=== PATIENT | female | born 1985 | race Caucasian/White ===

== ENCOUNTER 2022-09-18 09:02 | Emergency (ER) | payer OTHER, BC, SELFPAY ==
--- NOTE | 2022-09-18 09:05 | ED.URI ---
HPI - URI/Sore Throat General Chief Complaint: Upper Respiratory Infection Stated Complaint: Asthma/Cold Symptoms Time Seen by Provider: 09/18/22 09:05 Source: patient and RN notes reviewed History of Present Illness HPI Narrative: Patient is a 37-year-old female who presents to urgent care with complaints of wheezing, runny nose and cold-like symptoms. Patient is 32 weeks and says that she has had some increased shortness of breath with using the stairs. Reports of a sore throat with cough. Denies any fevers, chest pain, nausea or vomiting. Patient states she has called both her PCP and her corporate travel coordinator enabled referred her back to the other provider. Patient has been using her albuterol inhaler. No other acute complaints. No acute distress noted. Patient aware the plan of care. Some parts of this dictation were generated by voice recognition software and may contain typographical and/or grammatical inaccuracies. Related Data Home Medications Medication Instructions Recorded Confirmed albuterol sulfate 90 mcg/actuation 2 puff inhalation QID PRN 09/18/22 09/18/22 aerosol inhaler Shortness Of Breath cetirizine 10 mg tablet (Zyrtec) 10 mg PO DAILY 09/18/22 09/18/22 montelukast 10 mg tablet 10 mg PO DAILY 09/18/22 09/18/22 omeprazole 20 mg capsule,delayed 20 mg PO DAILY 09/18/22 09/18/22 release vits no.126-ferrous fum 1 tablet PO DAILY 09/18/22 09/18/22 28 mg iron-folic acid 800 mcg tablet (Classic ) Allergies Allergy/AdvReac Type Severity Reaction Status Date / Time No Known Allergies Allergy Verified 09/18/22 09:24 Review of Systems Review of Systems: CONSTITUTIONAL: Denies fever, chills, or sweats. EYES: Denies visual changes, redness, or discharge. ENT: Denies rhinorrhea, congestion, sore throat, or otalgia. CARDIOVASCULAR: Denies chest pain, palpitations, or edema. RESPIRATORY: Denies cough or dyspnea. GASTROINTESTINAL: Denies abdominal pain, nausea, vomiting, or diarrhea. GENITOURINARY: Denies dysuria or hematuria. SKIN: Denies rash or itching. MUSCULOSKELETAL: Denies back pain, joint pain, or myalgia. NEUROLOGIC: Denies headache, numbness, or weakness. PSYCHIATRIC: Denies anxiety or depression. All other systems reviewed are negative, except as documented in HPI. PMFSH Comments At the time of my signature, I reviewed and agree with the nursing past medical, surgical, social, and family history. There is no relevant family history pertinent to the patient complaint. Exam Narrative: GENERAL: This is a well-nourished, well-developed patient, in no apparent distress. HEAD: normocephalic, atraumatic. EYES: PERRL. Sclera clear/white. Vision is grossly intact. EARS: External ears normal, auditory canals clear and without drainage, TMs normal without perforation. Hearing grossly intact. NOSE: External nose normal with no obvious nasal discharge, nares without redness, no rhinorrhea. THROAT: Mucous membranes moist, posterior pharynx clear. Moderate postnasal drainage NECK: Neck supple, non-tender without lymphadenopathy CARDIOVASCULAR: Regular rate and rhythm RESPIRATORY: Inspiratory wheezes throughout. Sufficient air movement, no tightness SKIN: warm, intact with no suspicious lesions or rash, good texture and turgor. NEURO: awake, alert, and oriented to person, place and time. There were no obvious focal neurologic abnormalities. EXTREMITIES: No clubbing, cyanosis, or edema. Course Course Level of Care: Express Care Visit Vital Signs Vital signs: Vital Signs Temperature 97.6 F 09/18/22 09:10 Pulse Rate 102 H 09/18/22 09:10 Respiratory Rate 16 09/18/22 09:10 Blood Pressure 138/81 09/18/22 09:10 Pulse Oximetry 99 09/18/22 09:10 Oxygen Delivery Room Air 09/18/22 09:10 Temperature 97.6 F 09/18/22 09:10 Pulse Rate 102 H 09/18/22 09:10 Respiratory Rate 16 09/18/22 09:10 Blood Pressure 138/81 09/18/22 09:10 Pulse Oximetry 99 09/18/22 09:10 Oxyg
[2022-09-18 09:10] VITALS: BP 138/81; PULSE 102; RESP 16; TEMP 36.4; O2SAT 99
[2022-09-18] MEDS: IPRATROPIUM BR 0.02% INH SOLN 0.5 MG/2.5 ML VIAL INHALATION (10:00)
[2022-09-18] MEDS: ALBUTEROL SULFATE NEB 2.5 MG/3 ML INH INHALATION (10:00)
== END 2022-09-18 10:22 | disposition home or self-care (01) ==
PROVIDERS: Emergency Provider Nurse Practitioner Family; PCP Family Medicine
DX: O26.893 Other specified pregnancy related conditions, third trimester (principal); R06.2 Wheezing; Z3A.32 32 weeks gestation of pregnancy
CPT/HCPCS: 94640; 99213; G0463

== ENCOUNTER 2023-06-23 16:26 | Emergency (ER) | payer OTHER, SELFPAY ==
[2023-06-23 16:35] VITALS: BP 121/78; PULSE 73; RESP 20; TEMP 35.7; O2SAT 97
--- NOTE | 2023-06-23 16:43 | ED.URI ---
HPI - URI/Sore Throat General Chief Complaint: Upper Respiratory Infection Stated Complaint: Asthma/inhaler not working Source: patient, RN notes reviewed and old records reviewed Mode of arrival: ambulatory Limitations: no limitations History of Present Illness HPI Narrative: 30-year-old female presents to [facility] with complaints of cough, shortness of breath and asthma acting up for the last 2-3 days. Patient states using albuterol without relief. Patient states also takes Flovent and Singulair daily. patient is MD elicited complaint: cough Related Data Home Medications Medication Instructions Recorded Confirmed albuterol sulfate 90 mcg/actuation 2 puff inhalation QID PRN 09/18/22 09/18/22 aerosol inhaler Shortness Of Breath cetirizine 10 mg tablet (Zyrtec) 10 mg PO DAILY 09/18/22 09/18/22 montelukast 10 mg tablet 10 mg PO DAILY 09/18/22 09/18/22 omeprazole 20 mg capsule,delayed 20 mg PO DAILY 09/18/22 09/18/22 release vits no.126-ferrous fum 1 tablet PO DAILY 09/18/22 09/18/22 28 mg iron-folic acid 800 mcg tablet (Classic ) Allergies Allergy/AdvReac Type Severity Reaction Status Date / Time No Known Allergies Allergy Verified 06/23/23 16:46 Review of Systems Constitutional: Constitutional: Reports no additional constitutional complaints Eyes: Eyes: Reports no additional eye complaints ENT: Reports system reviewed and no additional complaints, except as documented Cardiovascular: Cardiovascular: Reports no additional cardiovascular complaints Respiratory: Respiratory: Reports as per HPI, Reports cough and Reports dyspnea Neurologic: Reports system reviewed and no additional complaints, except as documented PMFSH Comments At the time of my signature, I reviewed and agree with the nursing past medical, surgical, social, and family history. There is no relevant family history pertinent to the patient complaint. Exam Const: General: cooperative, healthy appearing, no acute distress and well nourished Nutritional Appearance: well nourished Orientation/consciousness: patient oriented x3 Limitations: no limitations HENMT: Head: normal to inspection and normocephalic Ears: external ears normal, TM's normal bilaterally, mastoids normal and Abnormal EAC present Face/Nose/Sinus: normal facial exam Face and sinus: normal facial exam Mouth: Yes Normal oral and palatal mucosa present, Yes oropharynx normal and Yes moist mucous membranes Throat: posterior oropharynx normal, tonsils normal, uvula midline and no uvular edema Eyes: General: appearance normal, both eyes and all related structures Sclera: sclerae normal Pupils: Equal, round and reactive pupils present Resp: Effort & Inspection: normal respiratory effort, able to speak in complete sentences, no audible wheezes, no cough, no respiratory distress and no retractions Auscultation: clear to auscultation bilaterally, no crackles, no rales, no rhonchi and no wheezes Cardio: Rate: regular rate Rhythm: regular rhythm Skin: General skin exam: normal color and no rashes or lesions noted Neuro: General: patient oriented x3 Cranial nerves: Yes Equal, round and reactive pupils present Psych: Appearance: grossly normal Course Course Emergency Course: Some parts of this dictation were generated by voice recognition software and may contain typographical and/or grammatical inaccuracies. Level of Care: Express Care Visit Vital Signs Vital signs: Vital Signs Temperature 96.2 F L 06/23/23 16:35 Pulse Rate 73 06/23/23 16:35 Respiratory Rate 20 06/23/23 16:35 Blood Pressure 121/78 06/23/23 16:35 Pulse Oximetry 97 06/23/23 16:35 Oxygen Delivery Room Air 06/23/23 16:35 Temperature 96.2 F L 06/23/23 16:35 Pulse Rate 73 06/23/23 16:35 Respiratory Rate 20 06/23/23 16:35 Blood Pressure 121/78 06/23/23 16:35 Pulse Oximetry 97 06/23/23 16:35 Oxygen Delivery Room Air
== END 2023-06-23 16:55 | disposition home or self-care (01) ==
PROVIDERS: Emergency Provider Registered Nurse; PCP Family Medicine
DX: J45.20 Mild intermittent asthma, uncomplicated (principal)
CPT/HCPCS: 99211; G0463

== ENCOUNTER 2023-10-07 08:49 | Emergency (ER) | payer OTHER, SELFPAY ==
--- NOTE | ~2023-10-07 | XR_ITS ---
EXAMINATION: XR foot LT min 3V DATE: 10/07/2023 09:23 INDICATION: Pain at the left great toe after tripping over a shoe 2 days prior TECHNIQUE: Dorsoplantar, two oblique and lateral views of the left foot were obtained. COMPARISON: None. FINDINGS: Mild hallux valgus. No fracture. Mild articular osteoarthritis at the first metatarsophalangeal and m ultiple tarsometatarsal and interphalangeal joints. Tiny foreign body in the fat pad plantar to the h ead of the fifth metatarsal. Soft tissues are otherwise unremarkable. IMPRESSION: 1. Mild polyarticular osteoarthritis in the left mid and forefoot. No acute osseous abnormality. 2. Tiny radio opaque foreign body in the fat pad plantar to the head of the fifth metatarsal. Reviewed, dictated and finalized at location A. IMPRESSION: 1. Mild polyarticular osteoarthritis in the left mid and forefoot. No acute oss eous abnormality. 2. Tiny radio opaque foreign body in the fat pad plantar to the head of the fif th metatarsal.
[2023-10-07 09:04] VITALS: BP 114/82; PULSE 72; RESP 20; TEMP 36.5; O2SAT 100
--- NOTE | 2023-10-07 09:37 | ED.LOWEXIN ---
HPI - Extremity Injury (Lower) General Chief Complaint: Extremity Injury, Lower Stated Complaint: left toe injury Source: patient Mode of arrival: ambulatory Limitations: no limitations History of Present Illness HPI Narrative: 38-year-old female presented for complaint of left great toe pain after injury 2 days ago. She states she tripped over her 's foot. Denies falling. Denies swelling, bruising, or deformity to the foot. Taking Tylenol. Related Data Home Medications Medication Instructions Recorded Confirmed albuterol sulfate 90 mcg/actuation 2 puff inhalation QID PRN 09/18/22 10/07/23 aerosol inhaler Shortness Of Breath cetirizine 10 mg tablet (Zyrtec) 10 mg PO DAILY 09/18/22 10/07/23 montelukast 10 mg tablet 10 mg PO DAILY 09/18/22 10/07/23 omeprazole 20 mg capsule,delayed 20 mg PO DAILY 09/18/22 10/07/23 release vits no.126-ferrous fum 1 tablet PO DAILY 09/18/22 10/07/23 28 mg iron-folic acid 800 mcg tablet (Classic ) escitalopram oxalate 10 mg tablet 10 mg PO DAILY 10/07/23 10/07/23 Allergies Allergy/AdvReac Type Severity Reaction Status Date / Time No Known Allergies Allergy Verified 10/07/23 09:32 Review of Systems Review of Systems: CONSTITUTIONAL: Denies body aches, fever, chills EYES: Denies visual changes SKIN: Denies rash, itching, or wounds. MUSCULOSKELETAL: Reports left foot pain Denies back pain, or myalgia. NEUROLOGIC: Denies headache, numbness, tingling, or weakness. All systems reviewed & are unremarkable except as noted in HPI and below PMFSH Comments At time of signature, I have reviewed and agree with nursing past medical, surgical, social and family history unless otherwise noted. Please see nursing chart for further information. There is no relevant family history pertinent to the presenting complaint Exam Narrative: GENERAL: Well-appearing CHEST: Speaks in full sentences. No respiratory distress. HEART: Regular rate and rhythm. Normal and equal peripheral pulses. EXTREMITIES: Left foot has mild bunion; normal strength and sensation, normal range of motion with flexion/extension of toes. No swelling or ecchymosis, No point tenderness. No open wounds, or obvious deformity; alignment normal, pulse palpable and equal bilaterally, skin warm, dry, pink. Capillary refill less than 3 seconds. SKIN: Warm, dry, no rash. NEURO: Alert and oriented x3. PSYCH: Normal mood and affect Course Course Emergency Course: Patient is aware of diagnosis, understands and agrees to treatment plan. Anticipatory guidance given. Patient agrees to follow-up as directed and is aware of reasons to seek care at the emergency department. Portions of this record may have been created with voice recognition software Level of Care: Express Care Visit Vital Signs Vital signs: Vital Signs Temperature 97.7 F 10/07/23 09:04 Pulse Rate 72 10/07/23 09:04 Respiratory Rate 20 10/07/23 09:04 Blood Pressure 114/82 10/07/23 09:04 Pulse Oximetry 100 10/07/23 09:04 Oxygen Delivery Room Air 10/07/23 09:04 Temperature 97.7 F 10/07/23 09:04 Pulse Rate 72 10/07/23 09:04 Respiratory Rate 20 10/07/23 09:04 Blood Pressure 114/82 10/07/23 09:04 Pulse Oximetry 100 10/07/23 09:04 Oxygen Delivery Room Air 10/07/23 09:04 Reviewed MDM - Extremity Injury (Lower) MDM Narrative Medical decision making narrative: results of x-ray reviewed with patient, incidental finding of soft tissue FB to left 5th metatarsal area; asymptomatic. Lucas wrap applied. Discussed physical exam findings c/w bunion. Advised supportive measures and signs/symptoms to go to the ER. Pt is appropriate for outpt treatment and f/u. Differential Diagnosis Differential diagnosis: Likely fracture of toe and other ( Toe sprain, dislocation, contusion, foot fracture) Imaging Data Radiologist's impression: Patient: Mesha Higgins : 1985 MR#: [id number]
== END 2023-10-07 10:00 | disposition home or self-care (01) ==
PROVIDERS: Emergency Provider Nurse Practitioner Family; PCP Family Medicine
DX: M79.675 Pain in left toe(s) (principal); M79.5 Residual foreign body in soft tissue; J45.909 Unspecified asthma, uncomplicated; K21.9 Gastro-esophageal reflux disease without esophagitis
CPT/HCPCS: 73630; 99213; G0463

== ENCOUNTER 2024-05-22 16:14 | Emergency (ER) | payer OTHER, SELFPAY ==
[2024-05-22 16:26] VITALS: BP 124/80; PULSE 84; TEMP 36.8; O2SAT 96
--- NOTE | 2024-05-22 16:28 | ED_ITS ---
HPI - Asthma General Chief Complaint: Upper Respiratory Infection Stated Complaint: needs inhaler for asthma History of Present Illness HPI Narrative: Patient presents requesting refill her inhalers. Patient states she has ran out of her steroid and her rescue inhaler. No shortness of breath no chest pain no fever slight cough. Related Data Home Medications Medication Instructions Recorded Confirmed albuterol sulfate 90 mcg/actuation 2 puff inhalation QID PRN 09/18/22 10/07/23 aerosol inhaler Shortness Of Breath cetirizine 10 mg tablet (Zyrtec) 10 mg PO DAILY 09/18/22 10/07/23 montelukast 10 mg tablet 10 mg PO DAILY 09/18/22 10/07/23 omeprazole 20 mg capsule,delayed 20 mg PO DAILY 09/18/22 10/07/23 release vits no.126-ferrous fum 1 tablet PO DAILY 09/18/22 10/07/23 28 mg iron-folic acid 800 mcg tablet (Classic ) escitalopram oxalate 10 mg tablet 10 mg PO DAILY 10/07/23 10/07/23 Allergies Allergy/AdvReac Type Severity Reaction Status Date / Time No Known Allergies Allergy Verified 10/07/23 09:32 Review of Systems Review of Systems: CONSTITUTIONAL: Denies chills, or sweats. Reports fever and generalized body aches EYES: Denies visual changes, redness, or discharge. ENT: Denies otalgia. Reports nasal congestion runny nose and sore throat CARDIOVASCULAR: Denies chest pain, palpitations, or edema. RESPIRATORY: Denies dyspnea. Reports occasional cough GASTROINTESTINAL: Denies abdominal pain, nausea, vomiting, or diarrhea. GENITOURINARY: Denies dysuria or hematuria. SKIN: Denies rash or itching. MUSCULOSKELETAL: Denies back pain, joint pain, or myalgia. Reports generalized body aches NEUROLOGIC: Denies headache, numbness, or weakness. PSYCHIATRIC: Denies anxiety or depression. PMFSH Comments At time of signature, agree with nursing past medical, surgical, social and family history. There is no relevant family history pertinent to the presenting complaint Exam Narrative: The patient is a well-developed, well-nourished in no acute distress. SKIN: Skin is warm and dry without erythema, swelling or exudate. There is good turgor. No tenting. HEAD: Atraumatic. Normocephalic. No temporal or scalp tenderness. EYES: Moist and bright. Sclera and conjunctivae normal. No discharge. PERRLA. Extraocular motions intact. Gross visual acuity intact. EARS: Pinna is normal shape and contour. Clear external auditory canals. TM pearly reyes with good cone of light, no erythema or suppuration. Bilateral cerumen noted no gross hearing deficit. NOSE: pink, moist mucosa with good air movement. Clear rhinorrhea without nasal flaring. Septum midline. Mouth: moist mucous membranes. THROAT; mild erythema noted to posterior oropharynx with moderate postnasal drainage. Without exudate or ulceration.. Uvula midline. Normal movement of soft palate. NECK: Supple and nontender with full range of motion without discomfort. No meningeal signs. LUNGS: Equal and bilateral breath sounds without wheezes, rales or rhonchi. CHEST: The chest wall is without retractions or use of accessory muscles. HEART: Has a regular rate and rhythm without murmur, gallops, click or rub. ABDOMEN: Soft, nontender with positive active bowel sounds. No rebound tenderness. EXTREMITIES: Without cyanosis, clubbing or edema. Equal 2+ distal pulses and 2 second capillary refill noted. NEUROLOGIC: alert, active, . The patient moves all extremities with normal muscle strength. Normal muscle tone is noted. Normal coordination is noted. NO focal neurological findings noted. Course Course Level of Care: Express Care Visit Discharge Plan Discharge Clinical Impression: Asthma, Medication refill Patient Disposition: Home, Self-Care Condition: Stable Additional Instructions: Follow-up with primary care provider as needed Rinse mouth after each use of inhalers If any worsening of symptoms a shortness of breath or chest pain please go to ER immediately further evaluation treatment Prescriptions: New fluticasone propionate 220 mcg/actuation HFA aerosol inhaler 2 inh inhalation Q12H 30 Days Qty: 12 1RF albuterol sulfate 90 mcg/actuation HFA aerosol inhaler 2 puff inhalation QID PRN (Reason: shortness of breath or wheezing) 30 Days Qty: 1 0RF No Action escitalopram oxalate 10 mg tablet 10 mg PO DAILY montelukast 10 mg tablet 10 mg PO DAILY cetirizine [Zyrtec] 10 mg Tablet 10 mg PO DAILY albuterol sulfate 90 mcg/actuation Hfa Aerosol Inhaler 2 puff INHALATION QID PRN (Reason: Shortness Of Breath) omeprazole [Prilosec] 20 mg Capsule,Delayed Release(Dr/Ec) 20 mg PO DAILY Classic 28 mg iron- 800 mcg Tablet 1 tablet PO DAILY albuterol sulfate 2.5 mg /3 mL (0.083 %) solution for nebulization 2.5 mg inhalation Q6H Qty: 75 0RF Follow-up/Referrals: PHYSICIAN,COMPLAINT COORDINATOR [Primary Care Provider] -
== END 2024-05-22 16:37 | disposition home or self-care (01) ==
PROVIDERS: Emergency Provider Nurse Practitioner Family
DX: J45.909 Unspecified asthma, uncomplicated (principal)
CPT/HCPCS: 99211; G0463

== ENCOUNTER 2024-10-02 11:24 | Emergency (ER) | payer SELFPAY ==
--- OUTSIDE RECORDS SUMMARY | 2024-10-02 11:27 | XMS_ITS | Clinical Summary ---
Author Organization [facility] Address [address] [place] [address] Care Team Providers Care Crawler Tractor Operator Name Role Phone Abhay Ocampo MD Primary Care Provider [phone] Cipriano Calhoun MD Unavailable [phone] Allergies No known active allergies Medications cetirizine (ZyrTEC) 10 mg capsule take 1 by Oral route every 0 0 5 Active fluticasone propionate (FLOVENT HFA) 110 mcg/actuation inhaler Inhale 2 puffs 2 (two) times a day Rinse mouth with water after use. Do not swallow. Active albuterol HFA (PROVENTIL HFA,VENTOLIN HFA,PROAIR HFA) 90 mcg/actuation inhaler Inhale 2 puffs every 4 (four) hours as needed for wheezing or shortness of breath Collaborating physician Damion Brizuela MD 1 each 1 2 Active montelukast (SINGULAIR) 10 mg tablet Take 1 tablet (10 mg total) by mouth nightly Active 25/iron fum/folic/dha (-1 ORAL) Take by mouth Active escitalopram (LEXAPRO) 10 mg tablet TAKE 1 TABLET (10 MG TOTAL) BY MOUTH EVERY MORNING. 90 tablet 2 3 Active Active Problems Problem Noted Date Diagnosed Date depression 12/19/2022 Trichomonal vaginitis during in third trimester 09/04/2022 Suspected COVID-19 virus infection 07/23/2021 Decreased libido 07/05/2021 Overview (07/05/2021): Life stress management discussed Will f/u when she returns in 6-8 weeks. Assessment & Plan (07/05/2021 3:31 PM TELEPHONE LINEWORKER): Life stress management discussed Will f/u when she returns in 6-8 weeks. Asthma 12/25/2012 Overview (10/25/2016): Asthma Resolved Problems Problem Noted Date Diagnosed Date Resolved Date with 38 completed weeks gestation 11/07/2022 12/19/2022 Multigravida of advanced mat ernal age in first trimester 05/06/2022 12/19/2022 Well woman exam 07/05/2021 05/06/2022 Assessment & Plan (07/05/2021 3:26 PM TELEPHONE LINEWORKER): Pap done. RTO 12m. I will send the results to the portal. If she has not heard in a week, to call the office. Encounter for preconception consultation 07/05/2021 05/06/2022 Assessment & Plan (07/05/2021 3:30 PM TELEPHONE LINEWORKER): To miv No family h/o ntd She will go for d21p. To call when she starts her period so we can arrange. Miscarriage 04/19/2021 06/14/2022 Overview (04/19/2021): Added automatically from request for surgery [id number] Assessment & Plan (04/24/2021 2:31 PM CDT): Plateau in abated discussed. Recommendation for D and C reviewed along with the risks, benefits, alternatives including infection, bleeding, uterine perforation, scarring of the uterus, and complication from anesthesia. The patient voices understanding and desires to proceed after she gets back from going to [place] to get . All of her questions were answered and she will go for her pre-surgical testing. Vaginal delivery 12/19/2022 Immunizations Immunization Administration Dates Next Due Influenza, Quadrivalent, Spl it, Preservative Free, Intramuscular 06/03/2022 Tdap 09/27/2022 Surgical History Surgery Date Site/Laterality Comments OTHER SURGICAL HISTORY 1984 PDA: Open heart surgery X 2 OTHER SURGICAL HISTORY 1984 PLACEMENT OF CHEST TUBE OTHER SURGICAL HISTORY 1984 INSERTION AND REMOVAL SHUNT EYE SURGERY 1990 EYE SURGERY OTHER SURGICAL HISTORY 1984 RESPIRATOR OTHER SURGICAL HISTORY 7# 13oz male: , 11/09/12 Medical History Medical History Date Comments Hx Other Medical PDA History of multiple allergies 1993 EDGARDO CHAN; Comments: GRASS, TREES, MOLD, POLLEN, CATS, FARRETS, DUST, RAGWEED, HAY....ETC Hx Other Medical 12/2004 INTERSITIAL CYS TITIS Asthma 01/1986 asthma Hx Other Medical PATIENT BORN AT 28 WEEKS Hx Other Medical 2013 7# 13oz male Premature baby born at 28 weeks Ovarian cyst Depression Family History Medical History Relation Name Comments Hyperlipidemia Father Hyperlipidemi a; Hypertension Father Hypertension; Other Father Lymphoma-HODGKI NS; Bone cancer Maternal Grandfather BONE CA NCER; Diabetes Maternal Grandfather Diabete s mellitus; Diabetes Maternal Grandmother Diabete s mellitus; Thyroid disease Maternal Grandmother Thyr oid disease; Asthma Mother's Brother Asthma; Asthma Mother's Sister Asthma; Heart disease Paternal Grandfather Heart disease; Prostate cancer Paternal Grandfather Canc er, prostate; Colon cancer Paternal Grandmother Cancer, colon; Relation Name Status Comments Father Maternal Grandfather Maternal Grandmother Mother's Brother Mother's Sister Paternal Grandfather Paternal Grandmother Social History Tobacco Use Types Packs/Day Years Used Date Smoking Tobacco: Never Alcohol Use Standard Drinks/Week Comments No 0 (1 standard drink = 0.6 oz pur e alcohol) Social Connection and Isolat ion Panel [NHANES] Answer Date Recorded In a typical week, how many times do you talk on the phone with family, friends, or neighbors? More than three times a week 11/07/2022 How often do you get togethe r with friends or relatives? Once a week 11/07/2022 How often do you attend chur ch or scientologist services? Never 11/07/2022 Do you belong to any clubs o r organizations such as islam groups, unions, fraternal or athletic groups, or school groups? No 11/07/2022 How often do you attend meet ings of the clubs or organizations you belong to? Never 11/07/2022 Are you , , di vorced, , never , or living with a partner? 11/07/2022 AUDIT-C Answer Date Recorded Q1: How often do you have a drink containing alcohol? Never 11/07/2022 Q2: How many drinks containi ng alcohol do you have on a typical day when you are drinking? Patient does not drink Q3: How often do you have si x or more drinks on one occasion? Never 11/07/2022 Overall Financial Resource Strain (CARDIA) Answe r Date Recorded How hard is it for you to pa y for the very basics like food, housing, medical care, and heating? Not very hard 11/07/2022 PHQ-2 Answer Date Recorded PHQ-2 Total Score (If total score is 3 or more points, staff should administer the PHQ-9) 0 11/07/2022 [facility] - Occupational Stress Questionnaire Answer Date Recorded Do you feel stress - tense, restless, nervous, or anxious, or unable to sleep at night because your mind is troubled all the time - these days? To some extent 11/07/2022 Exercise Vital Sign Answer Date Recorde d On average, how many days pe r week do you engage in moderate to strenuous exercise (like a brisk walk)? 0 days 11/07/2022 On average, how many minutes do you engage in exercise at this level? 0 min 11/07/2022 Hunger Vital Sign Answer Date Recorded Within the past 12 months, y ou worried that your food would run out before you got the money to buy more. Never true 11/08/19 23 Within the past 12 months, t he food you bought just didn't last and you didn't have money to get more. Never true 11/07/2022 PRAPARE - Transportation Answer Date Re corded In the past 12 months, has l ack of transportation kept you from medical appointments or from getting medications? Yes 10/20 In the past 12 months, has l ack of transportation kept you from meetings, work, or from getting things needed for daily living? Yes 11/07/2022 Housing Stability Vital Sign Answer Raul e Recorded In the last 12 months, was t here a time when you were not able to pay the mortgage or rent on time? No 11/07/2022 In the last 12 months, how many places have you lived? 1 11/07/2022 In the last 12 months, was t here a time when you did not have a steady place to sleep or slept in a mcc (including now)? No 11/07/2022 Personal Safety Answer Date Recorded Have you ever been in or are you currently in a harmful physical or emotional relationship or is someone making you feel afraid or unsafe? Denies 11/07/2022 Comments No Sex and Gender Information Value Date Recorded Sex Assigned at Not on file Legal Sex Female 10:44 AM TELEPHONE LINEWORKER Gender Identity Not on file Sexual Orientation Not on file Obstetrics History Para Term AB IAB SAB Ectopic Multiple Livin g Live Births 3 2 2 1 0 1 0 0 2 2 Date Outcome GA Total Labor Labor/2nd/3rd Weight Sex Type Anes PTL Yany A1 A5 Name Clin 2012 Term 37w 0d 3.544 kg (7 lb 13 oz) M Vag-S pont Epidur al N Livin g Leonel Calhoun Complications:None 2020 SAB SAB 2022 Term 38w 4d 1h 00m 0h 40m/0h 14m/0h 06m 4.005 kg (8 lb 13.3 oz) M Vag-S pont Epidur al N Livin g 8 9 BECHT OLD,B Alfredo Levy MD Complications:Precipitous La bor (<3 hours),Post Hemorrhage Delivery Location:[facility] ([facility]) Last Filed Vital Signs Vital Sign Reading Time Taken Comments Blood Pressure 116/80 12/19/2022 4:00 PM CDT Pulse 79 11/08/2022 4:45 PM CDT Temperature 36.2 C (97.1 F) 11/08/2022 4:45 PM CDT Respiratory Rate 16 11/08/2022 4:45 PM CDT Oxygen Saturation 90% 11/07/2022 2:06 PM CDT Inhaled Oxygen Concentration - - Weight 68.5 kg (151 lb) 12/19/2022 4:00 PM CDT Height 154.9 cm (5' 1 ) 12/19/2022 4:00 PM CDT Body Mass Index 28.53 12/19/2022 4:00 PM CDT Plan of Treatment Health Maintenance Due Date Last Done Comments Varicella Vaccines (1 of 2 - 13+ 2-dose series) 1998 Hepatitis B Screening 2003 Pneumococcal vaccine <65 (1 of 2 - PCV) 01/21/2004 Regular Well Visit/Exam 18-64 07/05/2022 07/05/2021 Depression Screening 11/02/2023 11/01/2022, 11/01/2022, 10/10/2022, Additional history exists Cervical Cancer Screening 12/20/20232022, 07/05/2021, 11/14/2014 Influenza Vaccine (#1) 2024 , 04/20/2020, 08/08/2019, Additional history exists DTaP/Tdap/Td Vaccine (3 - Td or Tdap) 09/27/2032 09/27/2022, 11/21/2017 Hepatitis C Screening Completed 05/06/2022 HPV Vaccines Aged Out No longer eligi ble based on patient's age to complete this topic Procedures Procedure Name Priority Date/Time Associated Diagnosis Comments PAP WITH REFLEX TO HIGH RISK HPV Routine 12/19/2022 4:25 PM CDT Encounter for visit HEPATITIS C ANTIBODY Routine 05/06/2022 12:45 PM CDT Encounter for supervision of other normal in first trimester from Last 3 Months or Most Recently Relevant to Health Maintenance Results * Pap with reflex to High Risk HPV (12/19/2022 4:25 PM CDT) CLINICAL INFORMATION: Xiomara Dc Comment: LMP Xiomara Dc Comment:NURSING Previous Pap Xiomara Dc Comment:NONE GIVEN Prev. Bx Xiomara Dc Comment:NONE GIVEN SOURCE: Xiomara Dc Comment:Cervix, Endocervix Pap, specimen adequacy Xiomara Dc Comment:SATISFACTORY FOR YESICA LUATION HPV interp Xiomara Dc Comment: Negative for intraepithelial lesion or malignancy. Atrophic pattern; predominantly parabasal cells COMMENTS Xiomara Dc Comment: This Pap test has been evaluated with computer assisted technology. All Purpose Clerk Raul Rendon t Dao Comment: LM, CT(ASCP) CT screening location: [place] [address] Administration JUNI Pathak [address] Comment [facility]: EXPLANATORY NOTE: The Pap is a screening test for cervical cancer. It is not a diagnostic test and is subject to false negative and false positive results. It is most reliable when a satisfactory sample, regularly obtained, is submitted with relevant clinical findings and history, and when the Pap result is evaluated along with historic and current clinical information. Thin prep 12/19/2022 4:25 PM CDT 12/20/2022 3:28 AM CDT Cipriano Calhoun MD LAB CYTOLOGY ORDERABLES Fi nal Result Performing Organization Address City/[facility] Co de Phone Number [place] [address] Administration JUNI [place] [address] * Hepatitis C antibody (05/06/2022 12:45 PM CDT) Hep C Ab Nonreactive Nonreactive MICAELA GAMBOA ([place]) Comment: Interpretive Data Nonreactive: Antibodies to HCV not detected. Does NOT exclude the possibility of recent exposure to HCV. Equivocal: Equivocal for HCV antibodies. Supplemental molecular testing will be automatically performed to determine infection status in accordance with current CDC screening recommendations. Reactive: Positive for HCV antibodies. This may represent current or past HCV infection. Supplemental molecular testing will be automatically performed to determine current infection status in accordance with current CDC screening recommendations. Interpretive data was last revised on 2019. Testing performed by: [facility], [address] [place] [address]., [id number] Blood 05/06/2022 12:4 5 PM CDT 05/06/2022 6:57 PM CDT Cipriano Calhoun MD LAB MICROBIOLOGY - GENERAL ORDERABLES Final Result Performing Organization Address City/[facility]/ZIP Co de Phone Number MICAELA GAMBOA ([place]) 1 [facility] Department of Laboratories [place], [place] [id number] from Last 3 Months or Most Recently Relevant to Health Maintenance Insurance [facility] [employer] OPEN ACCESS Advance Directives For more information, please contact: [phone] * Full Code (Latest Code Status on File) Date Activated Date Inactivated Comments 11/07/2022 6:30 PM 11/08/2022 10:54 PM * Full Code Date Activated Date Inactivated Comments 11/07/2022 6:05 AM 11/07/2022 6:30 PM Full CPR in case of cardiopulmonary arrest * Full Code Date Activated Date Inactivated Comments 04/27/2021 9:57 AM 04/27/2021 5:13 PM Care Teams Crawler Tractor Operator Relationship Specialty Start Date End Date Abhay Ocampo MD [address] [place] [address] [place] [address] PCP - General 05/16/21 Cipriano Calhoun MD [address] [place] [address] [address] [place] [address] Soft Drink Powder Mixer Obstetrics and Gynecology 11/08/22
--- OUTSIDE RECORDS SUMMARY | 2024-10-02 11:27 | XMS_ITS | Referral Summary ---
[facility] Organization [facility] Address [address] [place] [address] Care Team Providers Care Hot Knife Cutter Name Role Phone Abhay Ocampo MD Primary Care Provider [phone] Cipriano Calhoun MD Unavailable [phone] Allergies No known active allergies Medications cetirizine [...] weeks. Assessment & Plan (07/05/2021 3:31 PM TRAINING OFFICER): Life stress management discussed Will f/u when she returns in 6-8 weeks. Asthma 12/25/2012 Overview (10/25/2016): Asthma Resolved Problems Problem Noted Date Diagnosed Date Resolved Date with 38 completed weeks gestation 11/07/2022 12/19/2022 Multigravida of advanced mat ernal age in first trimester 05/06/2022 12/19/2022 Well woman exam 07/05/2021 05/06/2022 Assessment & Plan (07/05/2021 3:26 PM TRAINING OFFICER): Pap done. RTO 12m. I will send the results to the portal. If she has not heard in a week, to call the office. Encounter for preconception consultation 07/05/2021 05/06/2022 Assessment & Plan (07/05/2021 3:30 PM TRAINING OFFICER): To miv No family h/o ntd She will go for d21p. To call when she starts her period so we can arrange. Miscarriage 04/19/2021 06/14/2022 Overview (04/19/2021): Added automatically from request for surgery [id number] Assessment & Plan (04/24/2021 2:31 PM CDT): Plateau in abated discussed. Recommendation for D and C reviewed along with the risks, benefits, alternatives including infection, bleeding, uterine perforation, scarring of the uterus, and complication from anesthesia. The patient voices understanding and desires to proceed after she gets back from going to [place] to get . All of her questions were answered and she will go for her pre-surgical testing. Vaginal delivery 12/19/2022 Immunizations Immunization Administration Dates Next Due Influenza, Quadrivalent, Spl it, Preservative Free, Intramuscular 06/03/2022 Tdap 09/27/2022 Social History Tobacco Use Types Packs/Day Years [...] often do you attend chur ch or bahai services? Never 11/07/2022 Do you belong to any clubs o r organizations such as zoroastrian groups, unions, fraternal or athletic groups, or [...] staff should administer the PHQ-9) 0 11/07/2022 [facility] - Occupational Stress Questionnaire Answer Date Recorded [...] place to sleep or slept in a alf (including now)? No 11/07/2022 Personal Safety Answer Date Recorded Have you ever been in or are you currently in a harmful physical or emotional relationship or is someone making you feel afraid or unsafe? Denies 11/07/2022 Comments No Sex and Gender Information Value Date Recorded Sex Assigned at Not on file Legal Sex Female 10:44 AM TRAINING OFFICER Gender Identity Not on file Sexual Orientation Not on file Last Filed Vital Signs Vital Sign Reading [...] 12/19/2022 4:00 PM CDT Plan of Treatment Not on file Procedures Procedure Name Priority Date/Time Associated Diagnosis [...] Pap Xiomara Dc Comment:NONE GIVEN Prev. Bx Xiomraa Dc Comment:NONE GIVEN SOURCE: Xiomara Dc Comment:Cervix, Endocervix Pap, specimen adequacy Xiomara Dc Comment:SATISFACTORY FOR YESICA LUATION HPV interp Xiomara Dc Comment: Negative for intraepithelial lesion or malignancy. Atrophic pattern; predominantly parabasal cells COMMENTS Xiomara Dc Comment: This Pap test has been evaluated with computer assisted technology. Fabric Awning Repairer [facility] st Chloé Dc Comment: LM, CT(ASCP) [facility] [place] [address] Administration JUNI Path[place] [address] Comment Xiomara Dc Comment: EXPLANATORY NOTE: The Pap is [...] MD LAB CYTOLOGY ORDERABLES Fi nal Result [facility] LabPixiesRobert [place] [address] Administration [place]UN[place] [address] * Hepatitis C antibody (05/06/2022 12:45 PM CDT) Hep C Ab Nonreactive Nonreactive MICAELA GAMBOA ([place]) Comment: Interpretive Data Nonreactive: Antibodies to HCV [...] last revised on 2019. Testing performed by: , [address] [place] [address]., [id number] Blood 05/06/2022 12:4 5 PM CDT 05/06/2022 6:57 PM CDT Cipriano Calhoun MD LAB MICROBIOLOGY - GENERAL ORDERABLES Final Result MICAELA GAMBOA ([place]) 1 [facility] Department [place] [address] from Last 3 Months or Most Recently Relevant to Health Maintenance Insurance [facility] [employer] OPEN ACCESS Advance Directives For more information, please contact: [phone] * Full Code (Latest Code Status on File) Date Activated Date Inactivated Comments 11/07/2022 6:30 PM 11/08/2022 10:54 PM * Full Code Date Activated Date Inactivated Comments 11/07/2022 6:05 AM 11/07/2022 6:30 PM Full CPR in case of cardiopulmonary arrest * Full Code Date Activated Date Inactivated Comments 04/27/2021 9:57 AM 04/27/2021 5:13 PM Care Teams Hot Knife Cutter Relationship Specialty Start Date End Date Abhay Ocampo MD [address] [place] [address] [place] [address] PCP - General 05/16/21 Cipriano Calhoun MD [address] [place] [address] DR [address] [facility] [place] [address] Water Reuse Program Manager Obstetrics and Gynecology 11/08/22
[2024-10-02 11:31] VITALS: BP 115/73; PULSE 98; RESP 20; TEMP 36.7; O2SAT 95
--- NOTE | 2024-10-02 11:44 | ED_ITS ---
HPI - URI/Sore Throat General Chief Complaint: Upper Respiratory Infection Stated Complaint: Cough/Shortness of Breath Time Seen by Provider: 10/02/24 11:45 Source: patient, RN notes reviewed and old records reviewed Mode of arrival: ambulatory Limitations: no limitations History of Present Illness HPI Narrative: 39 year old female who presents to [facility] care with complaints of having body aches,fever and flu symptoms starting on Friday with no fevers since . Patient reports that she has been coughing so hard that she can't hold her urine and she has not been sleeping well. Patient reports that toddler had influenza recently. Patient reports that she has history of asthma and has been using her Albuterol and has taken Tylenol Zyrtec and cough syrup. Patient is presently breast feeding, MD elicited complaint: cough Pertinent past history: asthma Onset (ago): day(s) (5-6 days) Severity: moderate Able to tolerate fluids by mouth: Yes Treatments prior to arrival: other (inhaler, Tylenol, cough syrup and Zyrtec) Related Data Home Medications ?Medication ?Instructions ?Recorded ?Confirmed ?Last Taken ?Type cetirizine 10 mg tablet (Zyrtec) 10 mg PO DAILY 09/18/22 10/02/24 Unknown His tory Allergies Allergy/AdvReac Type Severity Reaction Status Date / Time No Known Allergies Allergy Verified 10/02/24 11:31 Review of Systems Review of Systems: CONSTITUTIONAL: Reports malaise, no chills, sweats, or fever since EYES: Denies visual changes, redness, or discharge. ENT: Reports rhinorrhea, congestion, no sinus pain,no otalgia and no sore throat. CARDIOVASCULAR: Denies chest pain, palpitations, or edema. RESPIRATORY: Reports cough.?Reports some dyspnea. GASTROINTESTINAL: Denies abdominal pain, nausea, vomiting, diarrhea SKIN: Denies rash or itching. MUSCULOSKELETAL: Denies present myalgia. NEUROLOGIC: Denies headache. All systems reviewed & are unremarkable except as noted in HPI and below PMFSH Past Medical History Medical History (Updated 10/04/24 @ 09:10 by Marie Coyle NP) GERD (gastroesophageal reflux disease) Asthma Surgical History Surgical History (Updated 10/04/24 @ 09:10 by Marie Coyle NP) H/O heart surgery at Social History Social History Smoking status: Never smoker Alcohol intake: former Alcohol use details: social is Substance use type: does not use Living arrangements: with family Gender identity (if verbalized by the patient): Female Comments At time of signature, agree with nursing past medical, surgical, social and family history. There is no relevant family history pertinent to the presenting complaint Exam Narrative: GENERAL: Well-appearing, well-nourished, and in no acute distress. HEAD: Normocephalic EYES: PERRLA, conjunctivae clear ENT: Nares clear, turbinates edematous and erythematous, clear discharge. Mucous membranes moist. TM pearly butler with dull light reflex bilaterally; no tragal tenderness. Oropharynx erythematous without lesions. Tonsils not enlarged and without exudate, no drooling, no hoarseness, no trismus, uvula midline.post nasal drainage noted NECK: Supple. No lymphadenopathy CHEST: Occasional scattered wheeze noted on auscultation, breath sounds equal. + wheezing, no rhonchi, rales, or stridor. No respiratory distress, speaks in full sentences.cough noted at times productive SAO2 95% on room air HEART: Regular rate and rhythm. No murmur heard. SKIN: Warm, dry, no rash. NEURO: Alert and oriented x3. PSYCH: Normal mood and affect Course Course Emergency Course: Patient is aware of diagnosis, understands and agrees to treatment plan.? Anticipatory guidance given.? Patient agrees to follow-up as directed and is aware of reasons to seek care at the emergency department. Portions of this record may have been created with voice recognition software Level of Care: Express Care Visit Vital Signs Vital signs: Vital Signs Temperature 36.7 C 10/02/24 11:31 Pulse Rate 98 10/02/24 11:31 Respiratory Rate 20 10/02/24 11:31 Blood Pressure 115/73 10/02/24 11:31 Pulse Oximetry 95 10/02/24 11:31 Oxygen Delivery Room Air 10/02/24 11:31 Temperature 36.7 C 10/02/24 11:31 Pulse Rate 98 10/02/24 11:31 Respiratory Rate 20 10/02/24 11:31 Blood Pressure 115/73 10/02/24 11:31 Pulse Oximetry 95 03/15/25 11:31 Oxygen Delivery Room Air 10/02/24 11:31 Reviewed MDM - URI/Sore Throat MDM Narrative Medical decision making narrative: Differential diagnosis considered: Persaud virus, strep pharyngitis, allergic rhinitis, upper respiratory tract infection, sinusitis, rhinosinusitis, nasopharyngitis. viral pharyngitis, otitis media, otitis externa, pneumonia, bronchitis, viral cough syndrome, viral syndrome, and influenza.? Exam findings show no acute concerns or changes; patient is non-toxic appearing and is in no distress.? Patient is appropriate for outpatient treatment and follow-up. Differential Diagnosis Differential diagnosis: Likely upper respiratory infection, viral infection, bronchitis and other (asthma exacerbation, acute cough) Medical Records Attestation: I reviewed the patient's medical records. Lab Data Attestation: I reviewed the patient's lab results. Critical Care Time Critical Care Time Critical Care Time: No Discharge Plan Discharge Clinical Impression: Acute cough Asthma exacerbation Qualifiers: Asthma severity: moderate Asthma persistence: persistent Qualified Code(s): J45.41 - Moderate persistent asthma with (acute) exacerbation Patient Disposition: Home, Self-Care Condition: Stable Instructions: Antibiotic Form, Asthma (ED) Additional Instructions: Increase fluids especially juices and water [id number] cough and cold medicine of your choice for your symptoms, recommend Delsym cough syrup Tylenol or ibuprofen for any fever pain Continue your inhaler/nebulizer as directed Steroids as directed--take with food heat to the face 20-30 minutes 4-6 times a day for pain Salt water gargles, throat lozenges or throat sprays as desired If your symptoms persist, change or worsen significantly before you can contact your personal physician then please, without delay, go to the emergency department for further evaluation. Follow-up with PCP in 7-10 days or sooner if needed Patient Language: Azeri Prescriptions: New prednisone 20 mg tablet 20 mg PO BID 5 Days Qty: 10 0RF fluticasone propionate 220 mcg/actuation HFA aerosol inhaler 2 puff inhalation Q12H Qty: 12 1RF Rx Instructions: administer with spacer No Action albuterol sulfate 90 mcg/actuation HFA aerosol inhaler 2 puff inhalation QID PRN (Reason: shortness of breath or wheezing) 30 Days Qty: 1 0RF cetirizine [Zyrtec] 10 mg Tablet 10 mg PO DAILY Follow-up/Referrals: PHYSICIAN,BUSINESS PROCESS LEAD [Primary Care Provider] - Time of Disposition: 12:06 Quality Lenny Coma Scale Eyes: Open Verbal: Oriented and Alert Motor: Follows Commands Lenny Coma Total Score: 15
== END 2024-10-02 12:14 | disposition home or self-care (01) ==
PROVIDERS: Emergency Provider Registered Nurse
DX: R05.1 Acute cough (principal); J45.41 Moderate persistent asthma with (acute) exacerbation; K21.9 Gastro-esophageal reflux disease without esophagitis
CPT/HCPCS: 99213; G0463

== ENCOUNTER 2025-07-15 16:37 | Emergency (ER) | payer SELFPAY ==
[2025-07-15 16:49] VITALS: BP 129/85; PULSE 71; RESP 20; TEMP 35.9; O2SAT 100
--- NOTE | 2025-07-15 17:06 | ED.SKABFB ---
HPI - Skin/Abscess/Foreign Bdy General Chief complaint: Extremity Injury, Upper Stated complaint: Right Middle Finger Skin Sore Time Seen by Provider: 07/15/25 17:00 Source: patient Mode of arrival: ambulatory Limitations: no limitations History of Present Illness HPI narrative: Mesha is a 40-year-old female patient presenting to the clinic today with complaints of right middle finger skin infection. She reports she was clipping her fingernails 2 days ago when her autistic tonsillar kicked her in the finger causing her fingernail to bleed. States his red, swollen, and painful. Is draining a yellowish white purulent discharge. No fevers, chills, body aches. Related Data Allergies Allergy/AdvReac Type Severity Reaction Status Date / Time No Known Allergies Allergy Verified 07/15/25 16:38 Review of Systems Review of Systems: Pertinent positives per HPI. Patient denies any fever, chills, rash, headache, visual changes, dizziness, cough, runny nose, sore throat, shortness of breath, chest pain, palpitations, nausea, vomiting, diarrhea, constipation, abdominal pain, or any urinary issues. [facility] Past Medical History Medical History (Updated 07/15/25 @ 17:08 by Miguel Amezquita APRN) GERD (gastroesophageal reflux disease) Asthma Surgical History Surgical History (Updated 10/04/24 @ 09:10 by Marie Coyle APRN) H/O heart surgery at Social History Social History Smoking status: Never smoker Alcohol intake: former Alcohol use details: social is Substance use type: does not use Living arrangements: with family Gender identity (if verbalized by the patient): Female Comments At the time of my signature, I reviewed and agree with the nursing past medical, surgical, social, and family history. There is no relevant family history pertinent to the patient complaint. Exam Narrative: General: Well-developed, well nourished, in no apparent distress Head: Normocephalic, atraumatic. Cardio: Regular rate and rhythm, s1 and s2 normal, no murmur appreciated. Resp: Clear to auscultation bilaterally, no rhonchi, rales, wheezing or rubs. Integumentary: [place], warm, and dry, red, swelling, tenderness to palpation over the right middle finger with purulent discharge to the lateral aspect of the cuticle. Yellowish white discharge Course Course Level of Care: Express Care Visit Vital Signs Vital signs: Vital Signs Temperature 35.9 C L 07/15/25 16:49 Pulse Rate 71 07/15/25 16:49 Respiratory Rate 20 07/15/25 16:49 Blood Pressure 129/85 07/15/25 16:49 Pulse Oximetry 100 07/15/25 16:49 Oxygen Delivery Room Air 07/15/25 16:49 Temperature 35.9 C L 07/15/25 16:49 Pulse Rate 71 07/15/25 16:49 Respiratory Rate 20 07/15/25 16:49 Blood Pressure 129/85 07/15/25 16:49 Pulse Oximetry 100 07/15/25 16:49 Oxygen Delivery Room Air 07/15/25 16:49 MDM MDM Narrative Medical decision making narrative: At the time of visit patient is resting comfortably on the exam table. Patient appears to be nontoxic. Complaints of right middle finger skin infection. She reports she was clipping her fingernails 2 days ago when her autistic tonsillar kicked her in the finger causing her fingernail to bleed. States his red, swollen, and painful. Is draining a yellowish white purulent discharge. No fevers, chills, body aches. Wound culture was obtained. Labs: Wound culture was obtained and sent to the lab Plan: I suspect patient has paronychia. Wound culture was obtained and sent to the lab. Prescription for cephalexin and mupirocin cream was sent to the pharmacy. Supportive measures were discussed with the patient and they voiced understanding discharge instructions and agrees to treatment plan. Return precautions reviewed Differential Diagnosis Differential Diagnosis: Differential diagnostic considerations for skin/abscess/foreign body issues include abscess of skin or subcutaneous tissue, viral exanthem, dermatophytosis, urticaria, herpes zoster, allergic reaction to drug, cellulitis, eczema, insect bites, impetigo, contact dermatitis, vasculitis. Discharge Plan Discharge Clinical Impression: Paronychia Patient Disposition: Home Condition: Stable Instructions: Antibiotic Form, Paronychia (ED) Additional Instructions: Increase fluids and stay well hydrated Keep area clean and dry May apply mupirocin cream to the affected area twice daily Take cephalexin as prescribed Follow-up with your primary care doctor for wound check and 2-3 days Patient Language: Marshallese Prescriptions: New mupirocin [Centany] 2 % ointment 1 applic topical BID 7 Days Qty: 22 0RF cephalexin 500 mg capsule 500 mg PO Q12H 7 Days Qty: 14 0RF Follow-up/Referrals: PHYSICIAN,SLUBBER OPERATOR [Primary Care Provider, Internal Medicine] Time of Disposition: 17:08 Quality NIHSS Nursing Documentation ED NIHSS nursing documentation: reviewed/agree
== END 2025-07-15 17:14 | disposition home or self-care (01) ==
PROVIDERS: Emergency Provider Nurse Practitioner Family
DX: L03.011 Cellulitis of right finger (principal); B95.62 Methicillin resistant Staphylococcus aureus infection as the cause of diseases classified elsewhere; J45.909 Unspecified asthma, uncomplicated; K21.9 Gastro-esophageal reflux disease without esophagitis
CPT/HCPCS: 87070; 87147; 87186; 87205; 99213; G0463